=== PATIENT | male | born 1970 | race Caucasian/White ===

== ENCOUNTER → 2021-10-29 | Outpatient (CLI) | payer BC, SELFPAY ==
--- NOTE | 2021-10-29 12:48 | EKG12_ITS ---
Test Reason : PREOP Blood Pressure : / mmHG Vent. Rate : 089 BPM Atrial Rate : 089 BPM P-R Int : 172 ms QRS Dur : 102 ms QT Int : 370 ms P-R-T Axes : 030 -02 055 degrees QTc Int : 450 ms Normal sinus rhythm Normal ECG Confirmed by YANIV GONZALEZ, PEACE ([id number]), design editor CARLITO MUNGUIA ([id number]) on 11/02/2021 1:02:03 PM Referred By: Ye Funes Confirmed By:PEACE PURVIS MD
== END | disposition home or self-care (01) ==
PROVIDERS: Referring Provider Otolaryngology; Visit Provider Otolaryngology
DX: H61.122 Hematoma of pinna, left ear (principal)
CPT/HCPCS: 93005